=== PATIENT | female | born 1995 | race Caucasian/White ===

== ENCOUNTER 2023-09-16 08:10 | Inpatient (IN) | payer MEDICAID, SELFPAY ==
[2023-09-16] VITALS (38 sets, daily range): BP systolic 111–154; BP diastolic 67–102; PULSE 60–107; RESP 13–22; TEMP 35.8–36.8; O2SAT 89–100; BMI 29.5
[2023-09-16 08:04] LABS: ROM Internal Control Test YES-OK TO RESULT pt. (Internal QC); ROM Patient Test Negative (Negative)
[2023-09-16 08:58] LABS: Absolute Lymphocyte Count 2.47 X10^3/uL (0.83-4.51); Absolute Neutrophil Count 14.3 X10^3/uL (2.0-7.7); Basophil# 0.08 X10^3/uL; Basophil% 0.4 % (0-1); Eosinophils% 0.6 % (0-5); Hemoglobin 12.6 g/dL (12.0-15.0); Lymphocyte # 2.47 X10^3/ul (0.83-4.51); Lymphocyte % 13.6 % (19-41); Mean Corp Hgb Conc 33.2 g/dL (32-36); Mean Corpuscular Hgb 30.2 pg (27.0-32.0); Mean Corpuscular Volume 91.1 fL (81-99); Mean Platelet Vol. 11.1 fl (6.2-12.0); Monocyte# 1.09 X10^3/uL; NRBC Flagged by Analyzer 0 % (0-5); Neutrophil # 14.25 X10^3/uL (2.7-7.7); Neutrophil % 78.5 % (47-70); Platelet Count 444 K/mm3 (150-450); RBC Distribution Width CV 13.5 % (11.6-14.6); RBC Distribution Width SD 44.9 fl (35.1-43.9); Red Blood Count 4.17 M/mm3 (4.2-5.4); White Blood Count 18.2 K/mm3 (4.4-11.0)
[2023-09-16] MEDS: Lactated Ringers 1,000 ML 50 ML IV (09:15)
[2023-09-16] MEDS: Vancomycin HCl 1,500 MG in 0.9% Normal Saline (500mL Bag) 500 ML 250 MG IV (09:15)
[2023-09-16 09:42] LABS: Bedside Glucose 92 mg/dL (74-106)
[2023-09-16 09:51] LABS: Syphilis Antibodies Non-reactive
[2023-09-16] MEDS: LACTATED RINGERS 500 ML 999 ML IV ×2 (09:55→12:48)
[2023-09-16 10:53] LABS: Bedside Glucose 87 mg/dL (74-106)
[2023-09-16 10:56] LABS: Amphetamine Urine VISTA NEGATIVE (<1000 ng/mL); Barbiturate Urine VISTA NEGATIVE (< 200 ng/mL); Benzodiazepine Urine VISTA NEGATIVE (< 200 ng/mL); Cocaine Urine VISTA NEGATIVE (< 300 ng/mL); Ecstacy Urine VISTA NEGATIVE (< 500 ng/mL); Methadone Urine VISTA NEGATIVE (< 300 ng/mL); PCP Urine VISTA NEGATIVE (< 25 ng/mL); THC Urine VISTA POSITIVE (< 50 ng/mL); Vista UDS pH Range 6
[2023-09-16] MEDS: fentaNYL-bupivacaine (epidural) 100 ML BAG EPIDURAL (11:05)
[2023-09-16] MEDS: Ondansetron 4 MG/2 ML Vial IV ×3 (12:37→23:59)
--- NOTE | 2023-09-16 13:00 | PCM.HP.OB ---
HPI - General General Date of Admission: 09/16/23 Date of Service: 09/16/23 HPI Narrative MIKIE GONSALEZ, is a 28 F who presents with ctxs. Maternal Data Information Final DEB: 09/14/23 Gestational age: 40&2 PFSH PFSH Medical History Asthma Gestational diabetes Home Medications aspirin 81 mg chewable tablet (Ale Chewable Low Dose Aspirin) 1 tab PO DAILY preventative in 09/16/23 [History Last Taken 09/15/23] ondansetron HCl 8 mg tablet 8 mg PO Q8H PRN nausea 09/16/23 [History Last Taken 09/16/23] pantoprazole 40 mg tablet,delayed release (Protonix) 40 mg PO DAILY heartburn 09/16/23 [History Last Taken 09/15/23] vit no.95-ferrous fumarate 28 mg-folic acid 800 mcg tablet () 1 tab PO DAILY 09/16/23 [History Last Taken 09/15/23] Allergy/AdvReac Type Severity Reaction Status Date / Time latex Allergy Rash Verified 09/16/23 07:46 Penicillins Allergy Hives Verified 09/16/23 07:46 Surgical History History of left breast biopsy Social History Smoking Status: Former smoker History Elective abortions Hx Para 0 Spontaneous abortions Hx # Term Pregnancies Ectopic pregnancies Hx # Pregnancies Multiple births # of living children NST FHR Rate Baby A Baseline: 130 Variability:: Minimal and Moderate Accelerations:: 15 x 15 Decelerations:: Late and Variable FHR Category:: Category II Uterine Activity:: Q 3 minutes Vital Signs Vital Signs Vital Signs: 09/16/23 07:45 09/16/23 07:45 09/16/23 07:51 Temperature Temperature Source Pulse Rate 82 85 Blood Pressure 133/79 H BP Systolic 133 BP Diastolic 79 Pulse Ox 09/16/23 07:51 09/16/23 07:45 09/16/23 07:45 Temperature Temperature Source Temporal Pulse Rate Blood Pressure BP Systolic BP Diastolic Pulse Ox 98 98 09/16/23 07:45 09/16/23 10:50 09/16/23 10:50 Temperature 98.2 F Temperature Source Pulse Rate 84 Blood Pressure BP Systolic BP Diastolic Pulse Ox 100 09/16/23 10:51 09/16/23 10:51 09/16/23 10:52 Temperature Temperature Source Pulse Rate 86 98 Blood Pressure 149/78 H BP Systolic 149 BP Diastolic 78 Pulse Ox 09/16/23 10:52 09/16/23 10:55 09/16/23 10:55 Temperature Temperature Source Pulse Rate 98 Blood Pressure 148/74 H BP Systolic 148 BP Diastolic 74 Pulse Ox 89 09/16/23 10:55 09/16/23 10:55 09/16/23 11:00 Temperature Temperature Source Pulse Rate 86 Blood Pressure 154/84 H BP Systolic 154 BP Diastolic 84 Pulse Ox 100 09/16/23 11:00 09/16/23 11:00 09/16/23 11:06 Temperature Temperature Source Pulse Rate 93 83 Blood Pressure BP Systolic BP Diastolic Pulse Ox 99 09/16/23 11:06 09/16/23 11:10 09/16/23 11:10 Temperature Temperature Source Pulse Rate 90 Blood Pressure 135/74 H BP Systolic 135 BP Diastolic 74 Pulse Ox 99 09/16/23 11:11 09/16/23 11:11 09/16/23 11:15 Temperature Temperature Source Pulse Rate 94 Blood Pressure 138/78 H BP Systolic 138 BP Diastolic 78 Pulse Ox 98 09/16/23 11:15 09/16/23 11:16 09/16/23 11:16 Temperature Temperature Source Pulse Rate 98 94 Blood Pressure BP Systolic BP Diastolic Pulse Ox 99 09/16/23 11:21 09/16/23 11:21 09/16/23 11:21 Temperature Temperature Source Pulse Rate 104 H 107 H Blood Pressure 139/78 H BP Systolic 139 BP Diastolic 78 Pulse Ox 09/16/23 11:21 09/16/23 11:25 09/16/23 11:25 Temperature Temperature Source Pulse Rate 92 Blood Pressure 130/74 H BP Systolic 130 BP Diastolic 74 Pulse Ox 99 09/16/23 11:26 09/16/23 11:26 09/16/23 11:30 Temperature Temperature Source Pulse Rate 95 Blood Pressure 127/67 H BP Systolic 127 BP Diastolic 67 Pulse Ox 99 09/16/23 11:30 09/16/23 11:31 09/16/23 11:31 Temperature Temperature Source Pulse Rate 83 84 Blood Pressure BP Systolic BP Diastolic Pulse Ox 98 09/16/23 11:35 09/16/23 11:35 09/16/23 11:59 Temperature Temperature Source Pulse Rate 96 Blood Pressure 130/72 H 130/69 H BP Systolic 130 130 BP Diastolic 72 69 Pulse Ox 09/16/23 11:59 09/16/23 11:59 09/16/23 11:59 Temperature Temperature Source Temporal Pulse Rate 93 Blood Pressure BP Systolic BP Diastolic Pulse Ox 100 09/16/23 11:59 09/16/23 12:32 09/16/23 12:32 Temperature 97.7 F L Temperature Source Pulse Rate 100 Blood Pressure 138/80 H BP Systolic 138 BP Diastolic 80 Pulse Ox Weight Weight: 177 lb 3.2 oz Body Mass Index (BMI) 29.5 Physical Exam Const alert Chest inspection of chest normal GI soft to palpation, non-tender and non-distended Inspection: gravid Narrative: cvx - 4/80/-1. AROM bloody & meconium fluid. FSE & IUPC placed. Labs Labs Labs: Blood Type O POSITIVE Antibody Screen NEGATIVE Hct 38.0 % (37-47) Hgb 12.6 g/dL (12.0-15.0) Syphilis Total Ab Non-reactive Assessment & Plan (1) Post term over 40 weeks: COMMENT: @ 40&5 in labor PLAN: Plan Admit to L&D Expectant management Pain - epidural GBS positive - vanco per protcol FWB - FSE placed, IV bolus going and continue position changes. Decelerations have resolved at this time & monitoring is overall reassuring. Routine care EFW - less than 4500g & patient with adequate pelvis
[2023-09-16] MEDS: Acetaminophen 500 MG Tablet PO (13:38)
[2023-09-16] MEDS: Amnioinfusion- 0.9% NS 1,000 ML IV.SOLN. INTRA-UTER (13:39)
[2023-09-16] MEDS: Sodium Citrate/Citric Acid 30 ML UDC PO (13:39)
[2023-09-16] MEDS: Clindamycin 900 MG/50 ML BAG 75 MG IV (14:40)
[2023-09-16] MEDS: Gentamicin IV 290 MG in Dextrose 5%-Water (50mL Bag) 50 ML 100 MG IVPB (14:54)
--- NOTE | 2023-09-16 15:51 | OP.PCM_ITS ---
Maternal Data Information Final DEB: 09/14/23 Gestational age: 40&2 Details Operative Information Pre-Operative Diagnosis: (1) Non reassuring heart tracing Post-Operative Diagnosis: Same Indications for : Distress Indications Narrative: Patient had a period recurrent late decelerations and a prolonged deceleration that resolved the amnioinfusion, position changes, fluid bolus and oxygen. The monitoring was reassuring until she began to have recurrent late decelerations again. Decision was made to proceed with a primary section due to late decelerations in a patient that is remote from delivery. The patient was taken to the operating room where epidural anesthesia was dosed & found to be adequate. She was prepped and draped in the dorsal supine position with a leftward tilt. A Pfannenstiel skin incision was made approximately 2 cm above the symphysis pubis and carried through to the underlying fascia with the scalpel. The fascia was incised incised in the midline and extended laterally with the Teixeira scissors. The rectus muscles were in the midline and the peritoneum was entered carefully and bluntly. The peritoneal incision was stretched and the bladder blade was inserted. Vesicouterine peritoneum was tented up, incised & then bladder flap created gently. The uterine incision was made in a low transverse fashion with the scalpel and extended superiorly and inferiorly with blunt dissection. The 's head was brought to the incision in the flexed position and delivered without difficulty. The head was gently guided to allow delivery of the anterior and posterior shoulders. The body then delivered with fundal pressure in the standard fashion. The 3VC cord was clamped and cut in delayed fashion. The infant was handed off to the waiting help desk coordinator. The placenta was delivered with fundal massage and gentle traction in the standard fashion. The uterus was exteriorized and cleared of clots and debris. The uterine incision was closed with #1 Vicryl suture in a running locked fashion. Monocryl suture was used in an imbricating fashion. The incision was examined and was found to be hemostatic. The uterus was returned to the abdominal cavity. After irrigating Marquise was placed over the uterine incision as some areas were denuded (but hemostatic). The peritoneum was closed with vicryl suture in running fashion. The rectus muscle was examined and any bleeding was Bovie cauterized. Marquise was also placed on some denuded (but hemostatic) areas of the rectus muscle. The fascia was closed with PDS suture in a running standard fashion. The subcutaneous tissue was examining and any bleeding was Bovie cauterized. The subcutaneous tissue was reapproximated with interrupted sutures. The skin was closed in a subcuticular fashion by the PRODUCTION UTILITY WORKER while I was present in the labor & delivery unit. The remainder of the procedure was performed by me with assistance. All sponge, lap, and needle counts were correct. The patient was taken to her room for recovery in a stable condition. Classification: NELLIE Procedure Type: low transverse explosives detonator #1: Leonor Aguila Type of Anesthesia: Epidural Antibiotic Given: Clindamycin 600mg IV x1 and Gentamicin 1.5mg/kg IV x1 Drain: Lizarraga to straight drain Estimated Blood Loss: 600ml Fluids Replaced: 1050ml Procedure Start Time: 14:57 Procedure Stop Time: 15:45 Findings Description of Procedure: Normal maternal uterus and adnexa Presentation: Positive for Vertex Amniotic Membrane Rupture Type: Artificial Amniotic Fluid Description: Bloody and Thick meconium Placental Delivery Description: Expressed Placenta Disposition: [facility] Cord Vessel Description: 3 Vessels Cord Entanglement: Around neck x 1, loose Nuchal Cord Compression: With compression Infant A Gender: Male (1 minute): 8 (5 minute): 9 Delayed Cord Clamping: No Complications Complications: none
[2023-09-16] MEDS: Oxytocin 15 Units/NS 250ml 15 UNITS/250 ML IV.SOLN 83 UNITS IV (16:30)
[2023-09-16] MEDS: Ketorolac 30 MG/ML Syringe IV ×2 (17:28→23:38)
[2023-09-16] MEDS: SimETHICONE 80 MG Chewable Tablet PO (17:41)
[2023-09-16 17:50] LABS: Bedside Glucose 77 mg/dL (74-106)
[2023-09-16] MEDS: Lactated Ringers 1,000 ML 100 ML IV (19:23)
[2023-09-16] MEDS: Acetaminophen 500 MG Tablet 1000 MG PO (19:24)
[2023-09-17 00:15] VITALS: BP 133/55; PULSE 68; RESP 18; TEMP 36.3; O2SAT 16
[2023-09-17] MEDS: Acetaminophen 500 MG Tablet 1000 MG PO ×4 (01:33→20:51)
[2023-09-17 03:10] VITALS: PULSE 88; RESP 16; O2SAT 99
[2023-09-17] MEDS: Enoxaparin 40 MG/0.4 ML Syringe SC (04:19)
[2023-09-17] MEDS: 0.9% Saline Lock 10 ML Syringe IV ×2 (05:39→12:18)
[2023-09-17] MEDS: Ketorolac 30 MG/ML Syringe IV ×2 (05:40→12:18)
[2023-09-17 06:02] LABS: Hematocrit 25.6 % (37-47); Hemoglobin 8.4 g/dL (12.0-15.0); Mean Corp Hgb Conc 32.8 g/dL (32-36); Mean Corpuscular Hgb 30.4 pg (27.0-32.0); Mean Corpuscular Volume 92.8 fL (81-99); Platelet Count 308 K/mm3 (150-450); RBC Distribution Width CV 13.5 % (11.6-14.6); RBC Distribution Width SD 45.7 fl (35.1-43.9); Red Blood Count 2.76 M/mm3 (4.2-5.4); White Blood Count 17.1 K/mm3 (4.4-11.0)
[2023-09-17 07:49] VITALS: BP 140/83; PULSE 88; RESP 18; TEMP 36.5; O2SAT 97
[2023-09-17] MEDS: Furosemide 20 MG Tablet PO (09:19)
[2023-09-17 09:45] LABS: Bedside Glucose 85 mg/dL (74-106)
[2023-09-17 12:34] VITALS: BP 128/80; PULSE 88; RESP 18; TEMP 36.4; O2SAT 99
[2023-09-17 13:01] LABS: Hematocrit 25.6 % (37-47); Hemoglobin 8.4 g/dL (12.0-15.0); Mean Corp Hgb Conc 32.8 g/dL (32-36); Mean Corpuscular Hgb 30.2 pg (27.0-32.0); Mean Corpuscular Volume 92.1 fL (81-99); Mean Platelet Vol. 10.6 fl (6.2-12.0); Platelet Count 344 K/mm3 (150-450); RBC Distribution Width CV 13.5 % (11.6-14.6); RBC Distribution Width SD 44.9 fl (35.1-43.9); Red Blood Count 2.78 M/mm3 (4.2-5.4); White Blood Count 16.8 K/mm3 (4.4-11.0)
--- NOTE | 2023-09-17 13:15 | PCM.PN.OB ---
Subjective Subjective Pain well controlled. Camilo CP/SOB/llightheadedness or palpitations Objective Data Objective Data Vital Signs: Vital Signs Temp Pulse Resp BP Pulse Ox O2 Del Method 97.5 F L 88 18 128/80 H 99 Room Air 09/17/23 12:34 09/17/23 12:34 09/17/23 12:34 09/17/23 12:34 09/17/23 12:34 09/17/23 12:34 Oxygen Delivery Method Room Air Weight: 80.377 kg Body Mass Index (BMI) 29.5 Intake & Output: Intake and Output for Last 24 Hours 09/15/23 09/16/23 09/17/23 23:59 23:59 23:59 Intake Total 2763.92 / 2763.92 866.67 / 866.67 Output Total 1200 / 1200 510 / 510 Balance 1563.92 / 1563.92 356.67 / 356.67 Lab / Micro Data 09/17/23 12:30 09/17/23 12:30 Labs: Laboratory Results - last 24 hr 09/16/23 17:11: POC Glucose 77 09/17/23 05:45: WBC 17.1 H, RBC 2.76 L, Hgb 8.4 L, Hct 25.6 L, MCV 92.8, MCH 30.4, MCHC 32.8, RDW Std Deviation 45.7 H, RDW Coeff of Jacqueline 13.5, Plt Count 308, MPV 10.0 09/17/23 06:13: POC Glucose 85 09/17/23 12:30: WBC 16.8 H, RBC 2.78 L, Hgb 8.4 L, Hct 25.6 L, MCV 92.1, MCH 30.2, MCHC 32.8, RDW Std Deviation 44.9 H, RDW Coeff of Jacqueline 13.5, Plt Count 344, MPV 10.6 Physical Exam Narrative 2+ LE edema, 2+ DTRs, no clonus Const alert General Appearance: cooperative GI GI Narrative: soft, moderate distention, fundus firm, appropriately tender. Abdominal bandage clean dry and intact Assessment & Plan (1) delivery delivered: COMMENT: POD#1 PLAN: Hemodynamically stable, however Is>>Os. Give lasix po x 1 and monitor. Recheck CBC today. Anemia appropriate for blood loss during surgery and hemodilution. Routine postop care. Monitor BPs, mildly elevated. (2) Acute blood loss as cause of postoperative anemia:
[2023-09-17 13:17] LABS: ALB/GLOB Ratio 0.6 RATIO (0.9-2.4); AST(SGOT) 25 U/L (15-37); Alanine Aminotransfer ALT/SGPT 26 U/L (13-56); Albumin, Serum 2.2 g/dL (3.2-5.0); Alkaline Phosphatase 114 U/L (45-117); Anion Gap 5 (5-15); BUN 19 mg/dL (7-18); BUN/Creat Ratio 24.9 RATIO (10-20); Calcium,Total 8.6 mg/dL (8.5-10.1); Chloride 106 mmol/L (98-107); Creatinine, Serum 0.76 mg/dL (0.55-1.02); EST Glomerular Filtration Rate 97 mL/min (>60); Est Glom Filt Rate - Afr Amer 118 mL/min (>60); Globulin 3.5 g/dL (2.2-4.2); Glucose 127 mg/dL (74-106); Potassium 4.1 mmol/L (3.5-5.1); Protein, Total 5.7 g/dL (6.4-8.2); Sodium Level 137 mmol/L (136-145)
[2023-09-17] MEDS: Senna/Docusate Sodium 1 Tablet PO (14:16)
[2023-09-17 16:00] VITALS: BP 128/73; PULSE 87; RESP 16; TEMP 36.6; O2SAT 98
[2023-09-17] MEDS: SimETHICONE 80 MG Chewable Tablet PO (17:01)
[2023-09-17] MEDS: Ibuprofen 600 MG Tablet PO ×2 (17:33→23:16)
[2023-09-17 20:00] VITALS: BP 134/76; PULSE 98; RESP 16; TEMP 36.7; O2SAT 99
[2023-09-18] MEDS: SimETHICONE 80 MG Chewable Tablet PO (00:53)
[2023-09-18] MEDS: Acetaminophen 500 MG Tablet 1000 MG PO ×2 (00:53→08:24)
[2023-09-18 00:57] VITALS: BP 122/68; PULSE 98; RESP 16; TEMP 36.8; O2SAT 97
[2023-09-18] MEDS: Enoxaparin 40 MG/0.4 ML Syringe SC (04:12)
[2023-09-18] MEDS: Ibuprofen 600 MG Tablet PO ×2 (05:30→11:27)
[2023-09-18 08:25] VITALS: BP 128/73; PULSE 83; RESP 16; TEMP 36.6; O2SAT 98
--- NOTE | 2023-09-18 08:26 | DS.PCM_ITS ---
Providers Date of Admission: 09/16/23 Primary Care Physician: No Primary Care Phys Reason For Visit: C SECTION Diagnosis Discharge Diagnosis (1) delivery delivered: Status: Acute Code(s): O82 - Encounter for delivery without indication (2) Acute blood loss as cause of postoperative anemia: Status: Acute Code(s): D62 - Acute posthemorrhagic anemia Medications at Discharge Home Medications vit no.95-ferrous fumarate 28 mg-folic acid 800 mcg tablet () 1 tab PO DAILY 09/16/23 acetaminophen 500 mg tablet 1,000 mg (2 x 500 mg) PO Q6H #0 tabs 09/18/23 ibuprofen 600 mg tablet 600 mg PO Q6H #0 tabs 09/18/23 sennosides 8.6 mg-docusate sodium 50 mg tablet (Stool Softener-Stimulant L axative) 1 - 2 tab PO DAILY #0 tabs 09/18/23 Hospital Course Operations section Procedures None Summary of Care Provided Minutes Spent on Discharge: 15 Hospital Course: Patient had primary section. Hospital course was uneventful. Physical Exam Narrative Patient seen at bedside. Feeling good. Ambulating and voiding without difficulty. Passing flatus. Denies headache, vision changes, SOB and CP. with minimal support. Desires discharge home today. Dressing is dry and intact. Const alert and no apparent distress General Appearance: cooperative and comfortable Exam Limitations: no limitations HEENT normocephalic Eyes General Eye: normal appearance of both eyes Neck full ROM General: normal visual inspection Chest Chest: symmetrical chest wall rise Resp normal respiratory effort and normal air movement Effort and Inspection: symmetric chest movement Auscultation: clear to auscultation bilaterally Cardio regular rate and regular rhythm GI normal to inspection, nondistended, normoactive bowel sounds Back/Spine normal ROM Extremity full ROM and no calf tenderness General Extremity: normal exam except as noted Skin no rashes or lesions noted Neuro CN's II-XII intact bilaterally Psych mental status grossly normal Weight / BMI Weight Weight: 177 lb 3.2 oz Body Mass Index (BMI) 29.5 ABG / Lab / Microbiology Data 09/17/23 12:30 09/17/23 12:30 Laboratory: Laboratory Results - last 24 hr 09/17/23 06:13: POC Glucose 85 09/17/23 12:30: WBC 16.8 H, RBC 2.78 L, Hgb 8.4 L, Hct 25.6 L, MCV 92.1, MCH 30.2, MCHC 32.8, RDW Std Deviation 44.9 H, RDW Coeff of Jacqueline 13.5, Plt Count 344, MPV 10.6, Sodium 137, Potassium 4.1, Chloride 106, Carbon Dioxide 26.0, Anion Gap 5, BUN 19 H, Creatinine 0.76, Estim Creat Clear Calc 117.50, Est GFR (MDRD) Af Amer 118, Est GFR (MDRD) Non-Af 97, BUN/Creatinine Ratio 24.9 H, Glucose 127 H, Calcium 8.6, Total Bilirubin 0.40, AST 25, ALT 26, Alkaline Phosphatase 114, Total Protein 5.7 L, Albumin 2.2 L, Globulin 3.5, Albumin/Globulin Ratio 0.6 L D/C Instructions Discharge Diet: No restrictions Discharge Activity: May Drive (2 weeks) and May Shower May resume sexual activity in: 6-8 weeks Weight Bearing Status: Weight bearing as tolerated Call your doctor if your incision/area has: Continuous Slow Oozing, Sudden Increased Bleeding, Increased Pain/ Swelling, Increased Redness, Foul Smelling Discharge and Swelling at the incision site Call your doctor if you observe: Fever of 101 or Higher, Numbness or Tingling, Using more than 1 pad per hour, Shortness of breath, Dizziness, Swelling in the ankles, Chest pain, Calf discomfort and Uncontrolled pain Suture Line Care: Avoid Pulling/Pushing Change Dressing in: 5 days Remove Dressing in: 5 days Cleanse incision/area with: Soap & Water Please Follow Up With: Abby Mccann CNM When: 1 week for incision check Meaningful Use Info Meaningful Use Diagnoses (Choose all that apply): None applicable Discharge Plan Admission Admit Date/Time: 09/16/23 08:10 Primary Reason for Your Visit: labor and delivery Attending Provider: Arik Thornton Primary Care Provider: Care Physician,No Primary Instructions Additional Instructions / Restrictions: Start oral iron. Ferrous Sulfate 325 mg by mouth 2x daily. Discharge Orders/Prescriptions Prescriptions: New sennosides-docusate sodium [Stool Softener-Stimulant Laxat] 8.6-50 mg Tablet 1 - 2 tab PO DAILY Qty: 0 0RF acetaminophen 500 mg Tablet 1,000 mg PO Q6H Qty: 0 0RF ibuprofen 600 mg Tablet 600 mg PO Q6H Qty: 0 0RF Continued PNV cmb#95-ferrous fumarate-FA [] 28 mg iron- 800 mcg tablet 1 tab PO DAILY Discontinued pantoprazole [Protonix] 40 mg tablet,delayed release (DR/EC) 40 mg PO DAILY ondansetron HCl 8 mg tablet 8 mg PO Q8H PRN (Reason: nausea) Rx Instructions: 1st dose 1-2 hr before radiation aspirin [Ale Chewable Aspirin] 81 mg tablet,chewable 1 tab PO DAILY Referrals / Follow Up: Care Physician,No Primary [Primary Care Provider] - Disposition Disposition (needs filled in before D/C Order can be placed): Home, Self Care
--- NOTE | 2023-09-18 10:17 | CASEMGMT ---
Social Work Assessment Labor and Delivery Unit Patient Address: [address] [place] [address] Phone number: [phone] Date of Referral: 09/16/23 Time of Referral:? 1852 Referred By:Candy Troncoso Date of Intervention: 09/18/23 ?? Time of Intervention:? 914 Reason for Referral: Substance abuse Sw completed chart review and acknowledges social work consult due to maternal substance use. Sw presented to bedside and introduced self to mother of baby (MOB- Leigh) and father of baby (FOB- Hubert). Parents also had visitor present, sw asked if parents wished to continue with assessment or wanted sw to come back later. Parents stated it was ok for sw to complete assessment with visitor present, parents state that visitor is like brother to them. Sw explained reason for sw involvement and completed assessment. ? History obtained from: medical records, MOB and FOB Household composition: Currently residing in the home is MOB, FOBlair and now baby. Parents report that they are working on some renovations, but have no issues or concerns. Patient's parent/guardian status:?ALONZO states that she and FOBlair have known each other for a while, but ultimately started talking/ dating on in 2021. MOB denies any issues or concerns regarding domestic violence or intimate partner violence with FOB. baby is first baby for both parents. Medical History: ?ALONZO is 28 year old female who is 1, para 0- now 1 following labor and delivery of . ALONZO received routine care with [facility] during . ALONZO presented to hospital on 09/16/23 with contractions. ALONZO required emergency due to nrht and delivered baby on 09/16/23 at 40 weeks gestation. Baby boy, named Emmy Dubon, was born weighing 6lb 12oz and his apgars were 8 and 9 at one and five minutes of life, respectfully. ALONZO states that she is breast feeding and it is going well. MOB states that they are going to have been be seen at [facility] in [place], but are not sure on what director information security to use yet. Educational Status:? MOB completed high school, and LUDMILA states that he completed the 9th grade, but did obtain his GED. Parents deny issues with reading, learning or comprehension. Financial Status: LUDMILA is gainfully employed at [employer] and also does some construction work on the side. ALONZO states that she is not working and will be a stay at home mom. Infant Supplies:??Parents have obtained all necessary baby supplies, including: car seat, safe sleep space, clothes, diapers and wipes. ALONZO states that she also has a breast pump for home. Childcare/Caregiver(s):? ALONZO will be the primary caregiver to baby along with LUDMILA when he is not at work. Transportation:?? Both parents have their drivers license and reliable means of transportation. No barriers at this time. Programs/Agencies Involved: ?ALONZO is connected to resources through [employer]: insurance and SNAP benefits. ALONZO states that she is also connected to [place] and is aware that she needs to call them and let them know that baby has been born. Children Services/Legal Issues:???No prior involvement with Children Services. Kendall informed parents of need for to make referral to [facility] due to maternal use of marijuana during . ALONZO stated that she assumed that a referral would need to be made. ALONZO states that she understands and asked appropriate questions about what to expect should they get involved. - Kendall called [facility] and spoke to hotline screener: Matilde. ALONZO also informed kendall that she had an ex-boyfriend whom she was previously residing with that she needed to press charges against due to him stalking her and threatening her after they had broken up. ALONZO states that he was continuously calling and texting her to the point where she was unable to use her phone. ALONZO reports that there was a time where he refused to leave the apartment for months at a time, even though she had asked him to leave. ALONZO states at one time he threatened to leave and come back with a gun, and that is when she called the police and pressed charges. Due to the nature of his threats he did spend a couple of weeks in nursing home after this incident occurred in June of 2022. ALONZO states that she also has a protection order in place, however it last September. ALONZO states that she has not had any issues since the order . Behavioral Health Issues: ??Mental Health History:??Parents deny mental health diagnoses. ALONZO states that she was somewhat anxious during the beginning of her , however the further she got in her the better she felt. ? Substance Use History: MOB used marijuana daily throughout . MOB states that she had extreme nausea and used the marijuana and zofran to help her be able to keep food down. MOB states that she was extremely addicted to nicotine, but quit cold turkey because she did not want to expose baby to it in utero and also after he was born. ?? Family History: ALONZO states that her father has a history of addiction. He is not an identified caregiver to .? Drug Screens: ?Drug screen on admission was positive for THC. Baby's meconium is still pending, a urine was not collected. Family/Social Stressors:? Parents deny any issues or stressors at this time. Support Systems: Parents report that they have a lot of family and friends who are supportive, people they can call and talk to or rely on if they need anything. Depression/Shaken Baby/Safe Sleeping:? Sw provided education on mood disorders to be on the lookout for such as baby blues and depression and anxiety. Parents state they are familiar with the terms, but asked sw to break down symptoms and what to expect should MOB experience any symptoms. Parents express understanding. FOBlair reports that he would be able to recognize if MOB were struggling and he believes he would know how to help her if she were struggling. ALONZO agrees, stating that FOB has been a huge support to her during and she knows that if she struggles he can help. Sw educated parents on shaken baby prevention and ABCs of safe sleep. Parents express understanding. ASSESSMENT:?MOB and baby admitted following labor and delivery, ready for discharge on this date. Parents extremely open and talkative during psychosocial assessment. Parents open regarding their past, current relationship and MOB substance use during . Parents have obtained all necessary baby supplies and have a lot of natural supports in place. Parents were receptive to sw involvement and support and appreciative of literature provided for them to review. Safe Plan of Care for related to substance use:? ALONZO states that she does not have any intentions of smoking/ using THC now that baby has been born. Education provided: told MOB to smoke outside of the home, change clothes, wash hands, and encouraged to abstain from using. MOB expressed understanding. PLAN:? MOB and baby to be discharged when medically ready. ?No other services requested or indicated. BENNY Armenta, SHOE SEWING MACHINE OPERATOR AND TENDER
--- NOTE | 2023-10-17 15:18 | NURSING ---
classification changed on delivery record intervention to match the physician documentation in the operative note.
== END 2023-09-18 12:00 | disposition home or self-care (01) | DRG 540 ==
LOC: WPOUT 08:14 → WP 08:14
PROVIDERS: Obstetrics & Gynecology; Admitting Provider Obstetrics & Gynecology; Referring Provider Obstetrics & Gynecology; Visit Provider Obstetrics & Gynecology
DX: O48.0 Post-term pregnancy (principal); O69.81X0 Labor and delivery complicated by cord around neck, without compression, not applicable or unspecified; O99.824 Streptococcus B carrier state complicating childbirth; O99.893 Other specified diseases and conditions complicating puerperium; R03.0 Elevated blood-pressure reading, without diagnosis of hypertension; O76 Abnormality in fetal heart rate and rhythm complicating labor and delivery; O77.0 Labor and delivery complicated by meconium in amniotic fluid; Z3A.40 40 weeks gestation of pregnancy; Z37.0 Single live birth; Z79.82 Long term (current) use of aspirin; Z86.32 Personal history of gestational diabetes; Z87.891 Personal history of nicotine dependence
CPT/HCPCS: 59025; 59050; 80053; 80307; 82962; 84112; 85025; 85027; 86780; 86850; 86900; 86901; 99221; J7030; J7040; J7120; A4216; G0378; J2405